=== PATIENT | female | born 1950 | race Caucasian/White ===

== ENCOUNTER 2017-09-22 11:01 | Inpatient (IN) | payer OTHER ==
--- NOTE | 2017-09-22 11:37 | PDOC ---
History of Present Illness - General History Source: Patient Exam Limitations: No Limitations - History of Present Illness Initial Comments: 09/22/17 12:42 The patient is a 67-year-old female, with a past medical history of HTN, who presents to the ED s/p syncopal episode at [facility] an hour prior to arrival. The patient states that she was standing up when she suddenly became nauseous, lightheaded, and heard this rushing noise in her ears. Members of the [facility] saw that the patient was hunched over and sat her down. They tried giving her some water, but she was unable to keep any of it down. As they were trying to stand her up and bring her to the vestibule of the [facility], the patient lost consciousness. The episode lasted for a few seconds. When the patient regained consciousness she knew who she was and where she was, but she was confused as to what happened. She reports having a similar episode back in the Spring that resolved on its own. Friend is at bedside and is translating. She reports that the patient took half the dose of her blood pressure medication this morning because she was not feeling well and assumed her pressure was low (patient's BP machine is not working). The patient denies any fever, chills, vomiting, diarrhea, constipation, or abdominal pain. Denies any chest pain, palpitations, or shortness of breath. Denies any vision changes or numbness/tingling. Allergies: NKA Surgical History: None reported. Social History: None reported. PCP: Dr. Boggs <Freida Bennett - Last Filed: 09/22/17 12:49> <Heather Trinh - Last Filed: 09/22/17 13:08> - General Chief Complaint: Syncope/Near Syncope Stated Complaint: SYNCOPY Time Seen by Provider: 09/22/17 11:05 Past History <Freida Bennett - Last Filed: 09/22/17 12:49> - Suicide/Smoking/Psychosocial Hx Smoking History: Never smoked <Heather Trinh - Last Filed: 09/22/17 13:08> - Past Medical History Allergies/Adverse Reactions: Allergies Allergy/AdvReac Type Severity Reaction Status Date / Time No Known Allergies Allergy Verified 09/22/17 11:09 Home Medications: Ambulatory Orders Captopril 0 mg PO DAILY 09/22/17 Review of Systems - Review of Systems Able to Perform ROS?: Yes Comments:: 09/22/17 12:45 GENERAL/CONSTITUTIONAL: No fever or chills. No weakness. HEAD, EYES, EARS, NOSE AND THROAT: No change in vision. No ear pain or discharge. No sore throat. CARDIOVASCULAR: (+)Lightheadedness. No chest pain or shortness of breath. RESPIRATORY: No cough, wheezing, or hemoptysis. GASTROINTESTINAL: (+)Nausea. No vomiting, diarrhea or constipation. GENITOURINARY: No dysuria, frequency, or change in urination. MUSCULOSKELETAL: No joint or muscle swelling or pain. No neck or back pain. SKIN: No rash NEUROLOGIC: (+)Loss of consciousness. No headache, vertigo, or change in strength/sensation. ENDOCRINE: No increased thirst. No abnormal weight change. HEMATOLOGIC/LYMPHATIC: No anemia, easy bleeding, or history of blood clots. ALLERGIC/IMMUNOLOGIC: No hives or skin allergy. <Freida Bennett - Last Filed: 09/22/17 12:49> *Physical Exam - Vital Signs Last Vital Signs Temp Pulse Resp BP Pulse Ox 97.3 F L 62 18 100/71 97 09/22/17 11:09 09/22/17 11:09 09/22/17 11:09 09/22/17 11:09 09/22/17 11:09 <Freida Bennett - Last Filed: 09/22/17 12:49> - Vital Signs Last Vital Signs Temp Pulse Resp BP Pulse Ox 97.3 F L 62 18 100/71 97 09/22/17 11:09 09/22/17 11:09 09/22/17 11:09 09/22/17 11:09 09/22/17 11:09 <Heather Trinh - Last Filed: 09/22/17 13:08> ED Treatment Course - LABORATORY CBC & Chemistry Diagram: 09/22/17 11:19 09/22/17 11:19 - ADDITIONAL ORDERS Additional order review: Laboratory Results 09/22/17 09/22/17 12:05 11:19 Sodium 140 Potassium 3.2 L Chloride 102 Carbon Dioxide 28 Anion Gap 10 BUN 23 H Creatinine 1.1 H Creat Clearance w eGFR 49.25 Random Glucose 103 Calcium 8.5 Total Bilirubin 0.5 AST 18 ALT 22 Alkaline Phosphatase 64 Creatine Kinase 81 Troponin I < 0.02 Total Protein 6.8 Albumin 3.8 Urine Color Ltyellow Urine Appearance Clear Urine pH 7.0 Ur Specific [place] 1.011 Urine Protein Negative Urine Glucose (UA) Negative Urine Ketones Negative Urine Blood Negative Urine Nitrite Negative Urine Bilirubin Negative Urine Urobilinogen Negative Ur Leukocyte Esterase Negative 09/22/17 11:19 RBC 4.23 MCV 85.8 MCHC 33.7 RDW 13.4 MPV 8.6 Neutrophils % 61.6 Lymphocytes % 23.6 Monocytes % 12.8 H Eosinophils % 1.1 Basophils % 0.9 - RADIOLOGY Radiology Studies Ordered: 09/22/17 12:49 Chest X-Ray was reviewed by Dr. Block and over-read by Radiology. Impression: No acute chest pathology. <Freida Bennett - Last Filed: 09/22/17 12:49> - LABORATORY CBC & Chemistry Diagram: 09/22/17 11:19 09/22/17 11:19 <Heather Trinh - Last Filed: 09/22/17 13:08> Medical Decision Making - Medical Decision Making 09/22/17 12:29 Dr. Boggs was paged and notified via phone service. <Freida Bennett - Last Filed: 09/22/17 12:49> - Medical Decision Making 09/22/17 12:36 New onset afib (one prior episode with it, but she did not seek evaluation at the time). Case d/w Dr. Boggs, patient has CHADS-VASC score of 3, will start on anticoagulation. He recommended a NOAC, as she will be unlikely to adhere to routine bloodwork with coumadin. Will admit to hospitalist. 09/22/17 13:07 Accepted for obs by hospitalist. <Heather Trinh - Last Filed: 09/22/17 13:08> *DC/Admit/Observation/Transfer - Attestations Scribe Attestion: 09/22/17 12:47 Documentation prepared by Freida Bennett, acting as biomedical engineering professor for Heather Trinh MD. <Freida Bennett - Last Filed: 09/22/17 12:49> - Discharge Dispostion Decision to Admit order: Yes <Heather Trinh - Last Filed: 09/22/17 13:08> Diagnosis at time of Disposition: Atrial fibrillation Qualifiers: Atrial fibrillation type: paroxysmal Qualified Code(s): I48.0 - Paroxysmal atrial fibrillation Syncope Qualifiers: Syncope type: unspecified Qualified Code(s): R55 - Syncope and collapse - Discharge Dispostion Condition at time of disposition: Stable - Referrals Referrals: Bryant Boggs MD [Primary Care Provider] -
[2017-09-22 11:42] LABS: BASO % 0.9 % (0-2.0); EOS % 1.1 % (0-4.5); HEMATOCRIT 36.3 % (32.4-45.2); HEMOGLOBIN 12.2 GM/dL (10.7-15.3); LYMPH % 23.6 % (8-40); MCH 28.9 pg (25.7-33.7); MCHC 33.7 g/dl (32.0-36.0); MEAN CELL VOLUME 85.8 fl (80-96); MEAN PLT VOLUME 8.6 fl (7.5-11.1); MONO % 12.8 % (3.8-10.2); NEUT % 61.6 % (42.8-82.8); PLATELET COUNT 201 K/MM3 (134-434); RBC 4.23 M/mm3 (3.60-5.2); RDW 13.4 % (11.6-15.6)
[2017-09-22 12:02] LABS: ALBUMIN 3.8 g/dl (3.4-5.0); ANION GAP 10 (8-16); BILIRUBIN,TOTAL 0.5 mg/dL (0.2-1.0); BLOOD UREA NITROGEN 23 mg/dL (7-18); CALCIUM 8.5 mg/dL (8.5-10.1); CHLORIDE 102 mmol/L (98-107); CO2 28 mmol/L (21-32); CREATININE 1.1 mg/dL (0.55-1.02); GLUCOSE,RANDOM 103 mg/dL (74-106); POTASSIUM 3.2 mmol/L (3.5-5.1); SGOT/AST 18 U/L (15-37); SGPT/ALT 22 U/L (12-78); SODIUM 140 mmol/L (136-145); TOT PROT 6.8 g/dl (6.4-8.2)
[2017-09-22 12:05] LABS: ALK PHOS 64 U/L (45-117)
[2017-09-22 12:15] LABS: URINE APPEARANCE CLEAR; URINE BILIRUBIN NEGATIVE (<2.0 mg/dL); URINE COLOR LTYELLOW; URINE GLUCOSE (UA) NEGATIVE (NEGATIVE); URINE KETONE NEGATIVE (NEGATIVE); URINE LEUK ESTERASE NEGATIVE (NEGATIVE); URINE NITRITE NEGATIVE (NEGATIVE); URINE PROTEIN NEGATIVE (NEGATIVE); URINE UROBILINOGEN NEGATIVE mg/dL (0.2-1.0)
[2017-09-22] MEDS ORDERED: SODIUM CHLORIDE 1,000 ML IV STA (12:28)
[2017-09-22] MEDS ORDERED: POTASSIUM CHLORIDE ORAL LIQUID 20 MEQ/15 ML PO ONE (12:28)
[2017-09-22] MEDS ORDERED: POTASSIUM CHLORIDE ORAL LIQUID 20 MEQ/15 ML ONE (12:31)
--- NOTE | 2017-09-22 13:05 | HP ---
CHIEF COMPLAINT: Lightheaded PCP: Dr. Perez HISTORY OF PRESENT ILLNESS: 67-year-old female with a past medical history of HTN, who presents to the ED s/ p syncopal episode at [facility] an hour prior to arrival. The patient states that she was standing up when she suddenly became nauseous, lightheaded, and heard this rushing noise in her ears. Members of the [facility] saw that the patient was hunched over and sat her down. They tried giving her some water, but she was unable to keep any of it down. As they were trying to stand her up and bring her to the vestibule of the [facility], the patient lost consciousness. The episode lasted for a few seconds. When the patient regained consciousness she knew who she was and where she was, but she was confused as to what happened. She reports having a similar episode back in the Spring that resolved on its own. Friend is at bedside and is translating. She reports that the patient took half the dose of her blood pressure medication this morning because she was not feeling well and assumed her pressure was low (patient's BP machine is not working). Patient denies chest pain, SOB, PORTILLO, orthopnea, lower extremity edema. She denies fever, sweats, chills, nausea, vomiting, diarrhea. She ate a full breakfast before going to [facility], eggs, toast, coffee. She does not recall ever being told she had an irregular heart beat or atrial fibrillation. Patient states she has been on atenolol and captopril. She does not know the dose, does not have meds with her. Pharmacy closed, check on Saturday. ER course was notable for: (1) ECG: afib @ 70bpm (2) BP 100/71 (3) K 3.2 Recent Travel: No PAST MEDICAL HISTORY: Hypertension PAST SURGICAL HISTORY: C section x 2 Social History: Smoking: never Alcohol: no Drugs: no Family History: from [place] Allergies No Known Allergies Allergy (Verified 09/22/17 11:09) HOME MEDICATIONS Home Medications Medication Instructions Recorded Captopril 0 mg PO DAILY 09/22/17 REVIEW OF SYSTEMS CONSTITUTIONAL: Absent: fever, chills, diaphoresis, generalized weakness, malaise, loss of appetite, weight change HEENT: Absent: rhinorrhea, nasal congestion, throat pain, throat swelling, difficulty swallowing, mouth swelling, ear pain, eye pain, visual changes CARDIOVASCULAR: +nausea, lightheadedness, "rushing sound" in ears, syncope Absent: chest pain, syncope, palpitations, irregular heart rate, lightheadedness , peripheral edema RESPIRATORY: Absent: cough, shortness of breath, dyspnea with exertion, orthopnea, wheezing, stridor, hemoptysis GASTROINTESTINAL: Absent: abdominal pain, abdominal distension, nausea, vomiting, diarrhea, constipation, melena, hematochezia GENITOURINARY: Absent: dysuria, frequency, urgency, hesitancy, hematuria, flank pain, genital pain MUSCULOSKELETAL: Absent: myalgia, arthralgia, joint swelling, back pain, neck pain SKIN: Absent: rash, itching, pallor HEMATOLOGIC/IMMUNOLOGIC: Absent: easy bleeding, easy bruising, lymphadenopathy, frequent infections ENDOCRINE: Absent: unexplained weight gain, unexplained weight loss, heat intolerance, cold intolerance NEUROLOGIC: Absent: headache, focal weakness or paresthesias, dizziness, unsteady gait, seizure, mental status changes, bladder or bowel incontinence PSYCHIATRIC: Absent: anxiety, depression, suicidal or homicidal ideation, hallucinations. PHYSICAL EXAMINATION Vital Signs - 24 hr 09/22/17 11:09 Temperature 97.3 F L Pulse Rate 62 Respiratory 18 Rate Blood Pressure 100/71 O2 Sat by Pulse 97 Oximetry (%) GENERAL: Awake, alert, and fully oriented, in no acute distress. HEAD: Normal with no signs of trauma. EYES: Pupils equal, round and reactive to light, extraocular movements intact, sclera anicteric, conjunctiva clear. No lid lag. EARS, NOSE, THROAT: Ears normal, nares patent, oropharynx clear without exudates. Moist mucous membranes. NECK: Normal range of motion, supple without lymphadenopathy, JVD, or masses. LUNGS: Breath sounds equal, clear to auscultation bilaterally. No wheezes, and no crackles. No accessory muscle use. HEART: Regular rate and rhythm, normal S1 and S2 without murmur, rub or gallop. ABDOMEN: Soft, nontender, not distended, normoactive bowel sounds, no guarding, no rebound, no masses. No hepatomegaly or splenomegaly. MUSCULOSKELETAL: Normal range of motion at all joints. No bony deformities or tenderness. No CVA tenderness. UPPER EXTREMITIES: 2+ pulses, warm, well-perfused. No cyanosis. No clubbing. No peripheral edema. LOWER EXTREMITIES: 2+ pulses, warm, well-perfused. No calf tenderness. No peripheral edema. NEUROLOGICAL: Cranial nerves II-XII intact. Normal speech. Laboratory Results - last 24 hr 09/22/17 09/22/17 09/22/17 11:19 11:19 12:05 WBC 6.0 RBC 4.23 Hgb 12.2 Hct 36.3 MCV 85.8 MCH 28.9 MCHC 33.7 RDW 13.4 Plt Count 201 MPV 8.6 Absolute Neuts (auto) 3.7 Neutrophils % 61.6 Lymphocytes % 23.6 Monocytes % 12.8 H Eosinophils % 1.1 Basophils % 0.9 Nucleated RBC % 0 Sodium 140 Potassium 3.2 L Chloride 102 Carbon Dioxide 28 Anion Gap 10 BUN 23 H Creatinine 1.1 H Creat Clearance w eGFR 49.25 Random Glucose 103 Calcium 8.5 Total Bilirubin 0.5 AST 18 ALT 22 Alkaline Phosphatase 64 Creatine Kinase 81 Troponin I < 0.02 Total Protein 6.8 Albumin 3.8 Urine Color Ltyellow Urine Appearance Clear Urine pH 7.0 Ur Specific [place] 1.011 Urine Protein Negative Urine Glucose (UA) Negative Urine Ketones Negative Urine Blood Negative Urine Nitrite Negative Urine Bilirubin Negative Urine Urobilinogen Negative Ur Leukocyte Esterase Negative ASSESSMENT/PLAN: 67 year-old woman with a PMH significant for HTN, placed on observation after a syncopal episode. Found to be in afib. Syncope Atrial fibrillation, newly diagnosed --prodrome suggestive of vasovagal episode; got 1L fluids in ED; get orthostatics --afib on ECG @ 70 bpm, newly diagnosed; prolonged QTc --home medications unclear, may be on ACEI and BB, doesn't always take meds or self-adjusts --troponin neg x 1, two pending --CXR: unremarkable --echo pending --telemetry monitoring --US carotids pending --NPO after midnight in event of stress tomorrow --per PCP Dr. Boggs patient is poor with medical followup and coumadin would not be a good option; start Eliqus 5mg BID --start metoprolol 12.5mg BID Hypertension --normotensive --hold lisinopril for now Hypokalemia --repleted FEN Fluids: NS @ 50mL/hr Electrolytes: replete as indicated Nutrition: low sodium DVT prophylaxis: on Eliquis Dispo: continues to require observation. Full code. Visit type - Emergency Visit Emergency Visit: Yes ED Registration Date: 09/22/17 Care time: The patient presented to the Emergency Department on the above date and was hospitalized for further evaluation of their emergent condition. - New Patient This patient is new to me today: Yes Date on this admission: 09/22/17 - Critical Care Critical Care patient: No Hospitalist Screening - Colonoscopy Questionnaire Colonoscopy Questionnaire: Colonoscopy Questionnaire - Patient: 50 - 75 years old and never had a screening colonoscopy: Unknown History of colon or rectal polyps, or CA: Unknown History of IBD, Crohn's disease or UC: Unknown History of abdominal radiation therapy as a child: Unknown - Relative: 1 with colon or rectal CA, or polyps at age 60 or younger: Unknown Colon or rectal CA diagnosed at age 45 or younger: Unknown Multiple relatives with colon or rectal CA: Unknown - Outcome: Screening Result: Negative Screen
[2017-09-22] MEDS ORDERED: APIXABAN 5 MG TABLET PO SCH (13:15)
--- NOTE | 2017-09-22 14:14 | CON.CARD ---
Consult Consult Specialty:: Cardiology - History of Present Illness History of Present Illness: The patient is a 67-year-old female, with a past medical history of HTN, who presents to the ED s/p syncopal episode at [facility] an hour prior to arrival. The patient states that she was standing up when she suddenly became nauseous, lightheaded, and heard this rushing noise in her ears. Members of the [facility] saw that the patient was hunched over and sat her down. They tried giving her some water, but she was unable to keep any of it down. As they were trying to stand her up and bring her to the vestibule of the [facility], the patient lost consciousness. The episode lasted for a few seconds. When the patient regained consciousness she knew who she was and where she was, but she was confused as to what happened. She reports having a similar episode back in the Spring that resolved on its own. Friend is at bedside and is translating. She reports that the patient took half the dose of her blood pressure medication this morning because she was not feeling well and assumed her pressure was low (patient's BP machine is not working). The patient denies any fever, chills, vomiting, diarrhea, constipation, or abdominal pain. Denies any chest pain, palpitations, or shortness of breath. Denies any vision changes or numbness/tingling. - Smoking History Smoking history: Never smoked Home Medications - Allergies Allergies/Adverse Reactions: Allergies Allergy/AdvReac Type Severity Reaction Status Date / Time No Known Allergies Allergy Verified 09/22/17 11:09 - Home Medications Home Medications: Ambulatory Orders Captopril 0 mg PO DAILY 09/22/17 Review of Systems - Review of Systems Constitutional: reports: No Symptoms Eyes: reports: No Symptoms HENT: reports: No Symptoms Neck: reports: No Symptoms Cardiovascular: reports: No Symptoms Gastrointestinal: reports: No Symptoms Genitourinary: reports: No Symptoms Breasts: reports: No Symptoms Reported Musculoskeletal: reports: No Symptoms Integumentary: reports: No Symptoms Neurological: reports: Syncope Endocrine: reports: No Symptoms Hematology/Lymphatic: reports: No Symptoms Psychiatric: reports: No Symptoms Vital Signs: Vital Signs Temperature 97.3 F L 09/22/17 11:09 Pulse Rate 62 09/22/17 11:09 Respiratory Rate 18 09/22/17 11:09 Blood Pressure 100/71 09/22/17 11:09 O2 Sat by Pulse Oximetry (%) 97 09/22/17 11:09 Constitutional: Yes: Well Nourished, No Distress, Calm Eyes: Yes: WNL, Conjunctiva Clear, EOM Intact HENT: Yes: WNL, Atraumatic, Normocephalic Neck: Yes: WNL, Supple, Trachea Midline Respiratory: Yes: WNL, Regular, CTA Bilaterally Gastrointestinal: Yes: WNL, Normal Bowel Sounds Renal/: Yes: WNL Cardiovascular: Yes: Pulse Irregular Heart Sounds: Yes: S1, S2 Musculoskeletal: Yes: WNL Extremities: Yes: WNL Integumentary: Yes: WNL Neurological: Yes: WNL, Alert, Oriented ...Motor Strength: WNL Psychiatric: Yes: WNL, Alert, Oriented - Other Data Labs, Other Data: CBC, BMP 09/22/17 11:19 09/22/17 11:19 Troponin, BNP 09/22/17 11:19 Troponin I < 0.02 Troponin, BNP 09/22/17 11:19 Troponin I < 0.02 Imaging - Results Chest X-ray: Image Reviewed (no i/e) EKG: Image Reviewed (af rep abn) Problem List - Problems (1) Atrial fibrillation Code(s): I48.91 - UNSPECIFIED ATRIAL FIBRILLATION Qualifiers: Atrial fibrillation type: paroxysmal Qualified Code(s): I48.0 - Paroxysmal atrial fibrillation (2) Syncope Code(s): R55 - SYNCOPE AND COLLAPSE Qualifiers: Syncope type: unspecified Qualified Code(s): R55 - Syncope and collapse Assessment/Plan syncope htn af neg c. duplex plan telemetry echo ac cont rate control with metoprollol
--- NOTE | 2017-09-22 14:16 | EKG ---
Test Reason : Blood Pressure : / mmHG Vent. Rate : 070 BPM Atrial Rate : 300 BPM P-R Int : 000 ms QRS Dur : 090 ms QT Int : 450 ms P-R-T Axes : 000 -01 -35 degrees QTc Int : 486 ms ATRIAL FIBRILLATION NONSPECIFIC ST AND T WAVE ABNORMALITY PROLONGED QT ABNORMAL ECG NO PREVIOUS ECGS AVAILABLE Confirmed by DANNA TRAYLOR MD ([id number]) on 09/22/2017 2:16:21 PM Referred By: Confirmed By:DANNA TRAYLOR MD
[2017-09-22] MEDS: APIXABAN 5 MG TABLET PO SCH (18:48)
[2017-09-22] MEDS ORDERED: SODIUM CHLORIDE 1,000 ML IV SCH (19:00)
[2017-09-22] MEDS ORDERED: POTASSIUM CHLORIDE TABS 20 MEQ TABLET.ER (FP) PO ONE (20:00)
[2017-09-22] MEDS ORDERED: POTASSIUM CHLORIDE TABS 10 MEQ TABLET.ER (FP) ONE (23:19)
[2017-09-23 07:54] LABS: ANION GAP 7 (8-16); BLOOD UREA NITROGEN 16 mg/dL (7-18); CALCIUM 8.4 mg/dL (8.5-10.1); CHLORIDE 106 mmol/L (98-107); CO2 26 mmol/L (21-32); CREATININE 0.8 mg/dL (0.55-1.02); GLUCOSE,RANDOM 92 mg/dL (74-106); MAGNESIUM 1.7 mg/dL (1.8-2.4); POTASSIUM 4.6 mmol/L (3.5-5.1); SODIUM 139 mmol/L (136-145)
[2017-09-23] MEDS ORDERED: LISINOPRIL 10 MG TABLET (FP) PO SCH (10:00)
[2017-09-23] MEDS ORDERED: CAPTOPRIL 25 MG PO SCH (10:00)
[2017-09-23] MEDS: METOPROLOL TARTRATE 25 MG TABLET (FP) PO SCH (10:55)
[2017-09-23] MEDS: MAGNESIUM 1GM/D5W 100ML - 100 ML IVPB IVPB SCH ×2 (10:55→13:08)
[2017-09-23] MEDS: APIXABAN 5 MG TABLET PO SCH ×2 (10:55→23:00)
--- NOTE | 2017-09-23 12:30 | PN ---
Progress Note, Physician History of Present Illness: The patient is a 67-year-old female, with a past medical history of HTN, who presents to the ED s/p syncopal episode at [facility] an hour prior to arrival. The patient states that she was standing up when she suddenly became nauseous, lightheaded, and heard this rushing noise in her ears. Members of the [facility] saw that the patient was hunched over and sat her down. They tried giving her some water, but she was unable to keep any of it down. As they were trying to stand her up and bring her to the vestibule of the [facility], the patient lost consciousness. The episode lasted for a few seconds. When the patient regained consciousness she knew who she was and where she was, but she was confused as to what happened. She reports having a similar episode back in the Spring that resolved on its own. Friend is at bedside and is translating. She reports that the patient took half the dose of her blood pressure medication this morning because she was not feeling well and assumed her pressure was low (patient's BP machine is not working). The patient denies any fever, chills, vomiting, diarrhea, constipation, or abdominal pain. Denies any chest pain, palpitations, or shortness of breath. Denies any vision changes or numbness/tingling. - Current Medication List Current Medications: Active Medications Apixaban (Eliquis -) 5 mg PO BID [facility] Last Admin: 09/23/17 10:55 Dose: 5 mg Sodium Chloride (Normal Saline -) 1,000 mls @ 50 mls/hr IV ASDIR [facility] Stop: 09/23/17 18:50 Last Admin: 09/22/17 23:36 Dose: 50 mls/hr Metoprolol Tartrate (Lopressor -) 12.5 mg PO DAILY [facility] Last Admin: 09/23/17 10:55 Dose: 12.5 mg - Objective Vital Signs: Vital Signs Temperature 97.9 F 09/23/17 07:23 Pulse Rate 72 09/23/17 07:23 Respiratory Rate 18 09/23/17 01:09 Blood Pressure 107/56 09/23/17 07:23 O2 Sat by Pulse Oximetry (%) 97 09/23/17 07:23 Eyes: Yes: WNL, Conjunctiva Clear, EOM Intact HENT: Yes: WNL, Atraumatic, Normocephalic Neck: Yes: WNL, Supple, Trachea Midline Cardiovascular: Yes: Pulse Irregular, S1, S2 Respiratory: Yes: WNL, Regular, CTA Bilaterally Gastrointestinal: Yes: WNL, Normal Bowel Sounds Genitourinary: Yes: WNL Musculoskeletal: Yes: WNL Extremities: Yes: WNL Edema: No Integumentary: Yes: WNL Neurological: Yes: WNL, Alert, Oriented ...Motor Strength: WNL Psychiatric: Yes: WNL Labs: CBC, BMP 09/22/17 11:19 09/23/17 06:00 Problem List - Problems (1) Atrial fibrillation Code(s): I48.91 - UNSPECIFIED ATRIAL FIBRILLATION Qualifiers: Atrial fibrillation type: paroxysmal Qualified Code(s): I48.0 - Paroxysmal atrial fibrillation (2) Syncope Code(s): R55 - SYNCOPE AND COLLAPSE Qualifiers: Syncope type: unspecified Qualified Code(s): R55 - Syncope and collapse Assessment/Plan syncope htn af neg c. duplex plan telemetry echo ac cont rate control with metoprolol MIBI st when stable
[2017-09-23] MEDS ORDERED: MAGNESIUM 1GM/D5W - 1 GM/100 ML IVPB IVPB ONE (12:58)
--- NOTE | 2017-09-23 17:19 | ECHO ---
Name: LISSETTE CHRISTIE Exam:Adult Echocardiogram Study Date: 09/23/2017 03:22 PM Age: 67 yrs Reason For Study: NEW ONSET OF ATRIAL FIBRILLATION Height: 66 in Weight: 170 lb BSA: 1.9 m2 MMode/2D Measurements & Calculations IVSd: 0.82 cm Ao root diam: 3.1 cm LVIDd: 4.2 cm LA dimension: 4.1 cm LVIDs: 2.7 cm LVPWd: 0.91 cm EDV(Teich): 77.9 ml TAPSE: 2.4 cm ESV(Teich): 27.1 ml Doppler Measurements & Calculations MV E max alexandr: 109.6 cm/sec Ao V2 max: 175.9 cm/sec MV A max alexandr: 37.0 cm/sec Ao max P.4 mmHg MV E/A: 3.0 Ao V2 mean: 121.9 cm/sec MV dec time: 0.20 sec Ao mean P.5 mmHg Ao V2 VTI: 40.3 cm AI P1/2t: 535.5 msec AI max alexandr: 440.6 cm/sec LV V1 max P.6 mmHg AI max P.7 mmHg LV V1 mean P.7 mmHg LV V1 max: 95.3 cm/sec AI dec slope: 241.0 cm/sec2 LV V1 mean: 60.1 cm/sec LV V1 VTI: 18.8 cm MR max alexandr: 399.9 cm/sec TR max alexandr: 194.3 cm/sec MR max P.4 mmHg TR max P.1 mmHg Med Peak E' Alexandr: 19.0 cm/sec Med E/e': 5.8 Lat Peak E' Alexandr: 11.2 cm/sec Lat E/e': 9.8 Left Ventricle The left ventricle is normal in size. Left ventricular systolic function is normal. Ejection Fraction = 60- 65%. No regional wall motion abnormalities noted. Right Ventricle The right ventricle is normal size. The right ventricular systolic function is normal. Atria The left atrial size is normal. Right atrial size is normal. Mitral Valve The mitral valve is normal in structure and function. There is moderate mitral regurgitation. Tricuspid Valve The tricuspid valve is normal in structure and function. There is mild tricuspid regurgitation. Pulmo nary artery systolic pressure is at least 23 mmHg assuming RA pressure of 8 mmHg. Aortic Valve The aortic valve is normal in structure and function. Moderate aortic regurgitation. Pulmonic Valve The pulmonic valve is not well visualized. Great Vessels The aortic root is normal size. Pericardium/Pleura There is no pericardial effusion. Interpretation Summary The left ventricle is normal in size. Left ventricular systolic function is normal. No regional wall motion abnormalities noted. Ejection Fraction = 60-65%. The right ventricular systolic function is normal. The left atrial size is normal. Right atrial size is normal. There is moderate mitral regurgitation. There is mild tricuspid regurgitation. Pulmonary artery systolic pressure is at least 23 mmHg assuming RA pressure of 8 mmHg Moderate aortic regurgitation. There is no pericardial effusion. Previous study is not available for comparison Stu Tellez MD 09/23/2017 05:18 PM
[2017-09-24 02:14] VITALS: BMI 28.1
[2017-09-24] MEDS: APIXABAN 5 MG TABLET PO SCH ×2 (10:10→21:40)
[2017-09-24] MEDS: METOPROLOL TARTRATE 25 MG TABLET (FP) PO SCH (10:10)
--- NOTE | 2017-09-24 10:20 | PN ---
Progress Note, Physician Chief Complaint: Pt A&Ox3; ambulatory; anxious; no chest pain or palpitations; not dyspneic. 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 She is unaware she has a heart arrhythmiia (AF), nor that osmar is on an anticoagulant now. History of Present Illness: The patient is a 67-year-old female, with a past medical history of HTN, who presents to the ED s/p syncopal episode at [facility] an hour prior to arrival. The patient states that she was standing up when she suddenly became nauseous, lightheaded, and heard this rushing noise in her ears. Members of the [facility] saw that the patient was hunched over and sat her down. They tried giving her some water, but she was unable to keep any of it down. As they were trying to stand her up and bring her to the vestibule of the [facility], the patient lost consciousness. The episode lasted for a few seconds. When the patient regained consciousness she knew who she was and where she was, but she was confused as to what happened. She reports having a similar episode back in the Spring that resolved on its own. Friend is at bedside and is translating. She reports that the patient took half the dose of her blood pressure medication this morning because she was not feeling well and assumed her pressure was low (patient's BP machine is not working). The patient denies any fever, chills, vomiting, diarrhea, constipation, or abdominal pain. Denies any chest pain, palpitations, or shortness of breath. Denies any vision changes or numbness/tingling. Allergies: NKA Surgical History: None reported. Social History: None reported. PCP: Dr. Boggs - Current Medication List Current Medications: Active Medications Apixaban (Eliquis -) 5 mg PO BID [facility] Last Admin: 09/24/17 10:10 Dose: 5 mg Metoprolol Tartrate (Lopressor -) 12.5 mg PO DAILY [facility] Last Admin: 09/24/17 10:10 Dose: 12.5 mg - Objective Vital Signs: Vital Signs Temperature 97.6 F 09/24/17 05:43 Pulse Rate 73 09/24/17 05:43 Respiratory Rate 18 09/24/17 05:43 Blood Pressure 122/73 09/24/17 05:43 O2 Sat by Pulse Oximetry (%) 98 08/07/18 01:30 Constitutional: Yes: Anxious Eyes: Yes: WNL HENT: Yes: WNL Neck: Yes: WNL Cardiovascular: Yes: Pulse Irregular, S1 (varies in intensity) Respiratory: Yes: Regular Gastrointestinal: Yes: Soft ...Rectal Exam: Yes: Deferred Genitourinary: Yes: Anuria Breast(s): Yes: WNL Musculoskeletal: Yes: WNL Extremities: Yes: WNL Edema: No Peripheral Pulses WNL: Yes Integumentary: Yes: WNL Neurological: Yes: WNL Psychiatric: Yes: WNL Labs: CBC, BMP 09/22/17 11:19 09/23/17 06:00 Abnormal Lab Results 09/24/17 09/24/17 09/24/17 10:50 10:50 12:00 Monocytes % 12.9 H PT with INR 17.70 H INR 1.57 H PTT (Actin FS) Anion Gap 6 L Triglycerides 173 H 09/24/17 12:00 Monocytes % PT with INR INR PTT (Actin FS) 44.4 H Anion Gap Triglycerides Problem List - Problems (1) Atrial fibrillation Assessment/Plan: Change metoprolol tartrate to 25 mg succinate daily for better 24 hour coverage (if tarrate is used, start bid). Hold metoprolol until after stress MIBI in am. On NOAC for anticoagulation. F/u TSH, electrolytes. Code(s): I48.91 - UNSPECIFIED ATRIAL FIBRILLATION Qualifiers: Atrial fibrillation type: paroxysmal Qualified Code(s): I48.0 - Paroxysmal atrial fibrillation (2) Syncope Assessment/Plan: Carotid artery doppler: normal. Telemetry and EKG: AF. ECHO: normal LVEF; mild LAE; moderate MR and AR; mild TR. For stress MIBI in am. Code(s): R55 - SYNCOPE AND COLLAPSE Qualifiers: Syncope type: unspecified Qualified Code(s): R55 - Syncope and collapse (3) Hypomagnesemia Assessment/Plan: level 1.7 on 09/23/17; check today's level (keep 2-2.4). Code(s): E83.42 - HYPOMAGNESEMIA
[2017-09-24] MEDS ORDERED: MAGNESIUM SULF 50% (8.12 MEQ/2 ML-1 GM VIAL) IVPB ONE (10:32)
[2017-09-24 11:06] LABS: BASO % 1.4 % (0-2.0); EOS % 1.3 % (0-4.5); HEMATOCRIT 32.5 % (32.4-45.2); HEMOGLOBIN 11.2 GM/dL (10.7-15.3); LYMPH % 25.7 % (8-40); MCH 29.4 pg (25.7-33.7); MCHC 34.3 g/dl (32.0-36.0); MEAN CELL VOLUME 85.6 fl (80-96); MEAN PLT VOLUME 8.6 fl (7.5-11.1); MONO % 12.9 % (3.8-10.2); NEUT % 58.7 % (42.8-82.8); PLATELET COUNT 207 K/MM3 (134-434); RDW 13.4 % (11.6-15.6); WHITE BLOOD COUNT 4.7 K/mm3 (4.0-10.0)
--- NOTE | 2017-09-24 11:09 | PN ---
Physical Exam: SUBJECTIVE: Patient seen and examined. Still in ED. Echo done. OBJECTIVE: Vital Signs Period Temp Pulse Resp BP Sys/Kaur Pulse Ox Last 24 Hr 97.5 F-98.0 F 73-90 16-20 112-143/57-79 94-98 GENERAL: Awake, alert, and fully oriented, in no acute distress. LUNGS: Breath sounds equal, clear to auscultation bilaterally. No wheezes, and no crackles. No accessory muscle use. HEART: Regular rate and rhythm, normal S1 and S2 ABDOMEN: Soft, nontender, not distended MUSCULOSKELETAL: Normal range of motion at all joints. No bony deformities or tenderness. No CVA tenderness. UPPER EXTREMITIES: 2+ pulses, warm, well-perfused. No cyanosis. No clubbing. No peripheral edema. LOWER EXTREMITIES: 2+ pulses, warm, well-perfused. No calf tenderness. No peripheral edema. No calf tenderness. NEUROLOGICAL: Cranial nerves II-XII intact. Normal speech. Laboratory Results - last 24 hr 09/23/17 14:05 Creatine Kinase 108 Troponin I < 0.02 Active Medications Generic Name Dose Route Start Trade Name Freq PRN Reason Stop Apixaban 5 mg 09/22/17 18:15 Eliquis - PO BID [facility] Metoprolol Succinate 25 mg 09/25/17 14:00 Toprol Xl - PO DAILY [facility] ASSESSMENT/PLAN 67 year-old woman with a PMH significant for HTN, placed on observation after a syncopal episode. Found to be in afib. Syncope Atrial fibrillation, newly diagnosed --prodrome suggestive of vasovagal episode; got 1L fluids in ED; get orthostatics --troponin neg x 3 --CXR: unremarkable --09/23 Echo: LV normal EF 60-65%; RV normal; moderate MR; mild TR; moderate AI --09/22 US carotids: normal study --per PCP Dr. Boggs patient is poor with medical followup and coumadin would not be a good option for a/c; start Eliqus 5mg BID --metoprolol 12.5mg BID Hypertension --normotensive --hold lisinopril for now Hypokalemia --repleted FEN Fluids: PO intake adequate Electrolytes: replete as indicated Nutrition: low sodium DVT prophylaxis: on Eliquis Dispo: continues to require observation. Full code. Visit type - Emergency Visit Emergency Visit: Yes ED Registration Date: 09/22/17 Care time: The patient presented to the Emergency Department on the above date and was hospitalized for further evaluation of their emergent condition. - New Patient This patient is new to me today: No - Critical Care Critical Care patient: No
[2017-09-24 11:38] LABS: CHLORIDE 104 mmol/L (98-107); POTASSIUM 4.1 mmol/L (3.5-5.1); SODIUM 139 mmol/L (136-145)
[2017-09-24 11:52] LABS: ANION GAP 6 (8-16); BLOOD UREA NITROGEN 9 mg/dL (7-18); CHOLESTEROL 148 mg/dL (50-200); CO2 29 mmol/L (21-32); CREATININE 0.8 mg/dL (0.55-1.02); GLUCOSE,RANDOM 95 mg/dL (74-106); HDL CHOLESTEROL 43 mg/dL (40-60); MAGNESIUM 1.8 mg/dL (1.8-2.4); TRIGLYCERIDES 173 mg/dL (35-160)
[2017-09-24] MEDS ORDERED: MAGNESIUM OXIDE 400 MG TABLET (FP) PO ONE (12:21)
[2017-09-24 12:36] LABS: INR 1.57 (0.83-1.09); PROTHROMBIN TIME (PATIENT) 17.7 SEC (9.7-13.0)
--- NOTE | 2017-09-24 17:02 | PN ---
Physical Exam: SUBJECTIVE: Patient seen and examined. Feeling well. No chest pain, palpitations. No episodes of lightheadedness. OBJECTIVE: Vital Signs Period Temp Pulse Resp BP Sys/Kaur Pulse Ox Last 24 Hr 97.5 F-99.2 F 70-90 16-20 114-143/70-82 94-98 GENERAL: Awake, alert, and fully oriented, in no acute distress. LUNGS: Breath sounds equal, clear to auscultation bilaterally. No wheezes, and no crackles. No accessory muscle use. HEART: Regular rate and rhythm, normal S1 and S2 ABDOMEN: Soft, nontender, not distended MUSCULOSKELETAL: Normal range of motion at all joints. No bony deformities or tenderness. No CVA tenderness. UPPER EXTREMITIES: 2+ pulses, warm, well-perfused. No cyanosis. No clubbing. No peripheral edema. LOWER EXTREMITIES: 2+ pulses, warm, well-perfused. No calf tenderness. No peripheral edema. No calf tenderness. NEUROLOGICAL: Cranial nerves II-XII intact. Normal speech. Laboratory Results - last 24 hr 09/24/17 09/24/17 09/24/17 10:50 10:50 12:00 WBC 4.7 RBC 3.80 Hgb 11.2 Hct 32.5 MCV 85.6 MCH 29.4 MCHC 34.3 RDW 13.4 Plt Count 207 MPV 8.6 Absolute Neuts (auto) 2.7 Neutrophils % 58.7 Lymphocytes % 25.7 Monocytes % 12.9 H Eosinophils % 1.3 Basophils % 1.4 Nucleated RBC % 0 PT with INR 17.70 H INR 1.57 H PTT (Actin FS) Sodium 139 Potassium 4.1 Chloride 104 Carbon Dioxide 29 Anion Gap 6 L BUN 9 Creatinine 0.8 Creat Clearance w eGFR > 60 Random Glucose 95 Calcium 9.0 Magnesium 1.8 Triglycerides 173 H Cholesterol 148 Total LDL Cholesterol 85 HDL Cholesterol 43 TSH 1.54 09/24/17 12:00 WBC RBC Hgb Hct MCV MCH MCHC RDW Plt Count MPV Absolute Neuts (auto) Neutrophils % Lymphocytes % Monocytes % Eosinophils % Basophils % Nucleated RBC % PT with INR INR PTT (Actin FS) 44.4 H Sodium Potassium Chloride Carbon Dioxide Anion Gap BUN Creatinine Creat Clearance w eGFR Random Glucose Calcium Magnesium Triglycerides Cholesterol Total LDL Cholesterol HDL Cholesterol TSH Active Medications Generic Name Dose Route Start Last Admin Trade Name Freq PRN Reason Stop Dose Admin Apixaban 5 mg 09/22/17 18:15 09/24/17 10:10 Eliquis - PO 5 mg BID [facility] Administration Metoprolol Succinate 25 mg 09/25/17 14:00 Toprol Xl - PO DAILY [facility] ASSESSMENT/PLAN: 67 year-old woman with a PMH significant for HTN, placed on observation after a syncopal episode. Found to be in afib. Syncope Atrial fibrillation, newly diagnosed, episodes of RVR --HR to 140s on telemetry --troponin neg x 3 --CXR: unremarkable --09/23 Echo: LV normal EF 60-65%; RV normal; moderate MR; mild TR; moderate AI --09/22 US carotids: normal study --continue Eliqus 5mg BID --hold metoprolol for stress tomorrow --cardiology following Hypertension --normotensive --restart ACEI - lisinopril 10mg Hypokalemia --repleted FEN Fluids: PO intake adequate Electrolytes: replete as indicated Nutrition: low sodium DVT prophylaxis: on Eliquis Dispo: continues to require observation. Full code. Visit type - Emergency Visit Emergency Visit: Yes ED Registration Date: 09/22/17 Care time: The patient presented to the Emergency Department on the above date and was hospitalized for further evaluation of their emergent condition. - New Patient This patient is new to me today: No - Critical Care Critical Care patient: No
[2017-09-24] MEDS: LISINOPRIL 10 MG TABLET (FP) PO SCH (17:48)
[2017-09-25] MEDS ORDERED: MAGNESIUM OXIDE 400 MG TABLET (FP) PO ONE (07:41)
[2017-09-25] MEDS: LISINOPRIL 10 MG TABLET (FP) PO SCH ×2 (09:30→13:05)
[2017-09-25] MEDS: APIXABAN 5 MG TABLET PO SCH (09:30)
--- NOTE | 2017-09-25 13:20 | PN ---
Progress Note, Physician History of Present Illness: The patient is a 67-year-old female, with a past medical history of HTN, who presents to the ED s/p syncopal episode at [facility] an hour prior to arrival. The patient states that she was standing up when she suddenly became nauseous, lightheaded, and heard this rushing noise in her ears. Members of the [facility] saw that the patient was hunched over and sat her down. They tried giving her some water, but she was unable to keep any of it down. As they were trying to stand her up and bring her to the vestibule of the [facility], the patient lost consciousness. The episode lasted for a few seconds. When the patient regained consciousness she knew who she was and where she was, but she was confused as to what happened. She reports having a similar episode back in the Spring that resolved on its own. Friend is at bedside and is translating. She reports that the patient took half the dose of her blood pressure medication this morning because she was not feeling well and assumed her pressure was low (patient's BP machine is not working). The patient denies any fever, chills, vomiting, diarrhea, constipation, or abdominal pain. Denies any chest pain, palpitations, or shortness of breath. Denies any vision changes or numbness/tingling. - Current Medication List Current Medications: Active Medications Lisinopril (Prinivil) 10 mg PO DAILY [facility] Last Admin: 09/25/17 13:05 Dose: 10 mg Metoprolol Succinate (Toprol Xl -) 25 mg PO DAILY [facility] Last Admin: 09/25/17 13:05 Dose: 25 mg - Objective Vital Signs: Vital Signs Temperature 97.9 F 09/25/17 09:00 Pulse Rate 61 09/25/17 09:00 Respiratory Rate 20 09/25/17 09:00 Blood Pressure 130/77 09/25/17 09:00 O2 Sat by Pulse Oximetry (%) 98 09/25/17 09:00 Eyes: Yes: WNL, Conjunctiva Clear, EOM Intact HENT: Yes: WNL, Atraumatic, Normocephalic Neck: Yes: WNL, Supple, Trachea Midline Cardiovascular: Yes: WNL, Regular Rate and Rhythm Respiratory: Yes: WNL, Regular, CTA Bilaterally Gastrointestinal: Yes: WNL, Normal Bowel Sounds Genitourinary: Yes: WNL Musculoskeletal: Yes: WNL Extremities: Yes: WNL Edema: No Integumentary: Yes: WNL Neurological: Yes: WNL, Alert, Oriented ...Motor Strength: WNL Psychiatric: Yes: WNL Labs: CBC, BMP 09/24/17 10:50 09/24/17 10:50 INR, PTT INR 1.57 (0.83-1.09) H 09/24/17 12:00 Problem List - Problems (1) Atrial fibrillation Code(s): I48.91 - UNSPECIFIED ATRIAL FIBRILLATION Qualifiers: Atrial fibrillation type: paroxysmal Qualified Code(s): I48.0 - Paroxysmal atrial fibrillation (2) Syncope Code(s): R55 - SYNCOPE AND COLLAPSE Qualifiers: Syncope type: unspecified Qualified Code(s): R55 - Syncope and collapse Assessment/Plan - Problems (1) Atrial fibrillation Assessment/Plan: Change metoprolol tartrate to 25 mg succinate daily for better 24 hour coverage (if tarrate is used, start bid). Hold metoprolol until after stress MIBI in am. off NOAC for c. cath -will start Lovenox F/u TSH, electrolytes. Code(s): I48.91 - UNSPECIFIED ATRIAL FIBRILLATION Qualifiers: Atrial fibrillation type: paroxysmal Qualified Code(s): I48.0 - Paroxysmal atrial fibrillation (2) Syncope Assessment/Plan: Carotid artery doppler: normal. Telemetry and EKG: AF. ECHO: normal LVEF; mild LAE; moderate MR and AR; mild TR. stress MIBI exercise induced ekg changes, TIB 1.2 no perfussion defects d/w patient and her nice who is a nurse at [facility] rx options including c. cath. Patient will go for c cath either to [facility] or [facility] Code(s): R55 - SYNCOPE AND COLLAPSE Qualifiers: Syncope type: unspecified Qualified Code(s): R55 - Syncope and collapse (3) Hypomagnesemia Assessment/Plan: level 1.7 on 09/23/17; check today's level (keep 2-2.4). Code(s): E83.42 - HYPOMAGNESEMIA
[2017-09-25] MEDS: ENOXAPARIN NA (PORCINE) 80 MG/0.8 ML DISP.SYRIN SQ SCH ×4 (13:35→21:22)
[2017-09-25] MEDS ORDERED: metoPROLOL SUCCINATE 25 MG TAB.SR.24H (FP) PO SCH (14:00)
--- NOTE | 2017-09-25 14:19 | DS ---
Physical Exam: SUBJECTIVE: Patient seen and examined OBJECTIVE: Vital Signs Period Temp Pulse Resp BP Sys/Kaur Pulse Ox Last 24 Hr 97.2 F-99.2 F 61-85 17-20 118-137/70-89 95-98 PHYSICAL EXAM GENERAL: Awake, alert, and fully oriented, in no acute distress. LUNGS: Breath sounds equal, clear to auscultation bilaterally. No wheezes, and no crackles. No accessory muscle use. HEART: Irregular, S1 and S2 ABDOMEN: Soft, nontender, not distended MUSCULOSKELETAL: Normal range of motion at all joints. No bony deformities or tenderness. No CVA tenderness. UPPER EXTREMITIES: 2+ pulses, warm, well-perfused. No cyanosis. No clubbing. No peripheral edema. LOWER EXTREMITIES: 2+ pulses, warm, well-perfused. No calf tenderness. No peripheral edema. No calf tenderness. NEUROLOGICAL: Cranial nerves II-XII intact. Normal speech. LABS CBCD WBC 4.7 K/mm3 (4.0-10.0) 09/24/17 10:50 RBC 3.80 M/mm3 (3.60-5.2) 09/24/17 10:50 Hgb 11.2 GM/dL (10.7-15.3) 09/24/17 10:50 Hct 32.5 % (32.4-45.2) 09/24/17 10:50 MCV 85.6 fl (80-96) 09/24/17 10:50 MCHC 34.3 g/dl (32.0-36.0) 09/24/17 10:50 RDW 13.4 % (11.6-15.6) 09/24/17 10:50 Plt Count 207 K/MM3 (134-434) 09/24/17 10:50 MPV 8.6 fl (7.5-11.1) 09/24/17 10:50 CMP Sodium 139 mmol/L (136-145) 09/24/17 10:50 Potassium 4.1 mmol/L (3.5-5.1) 09/24/17 10:50 Chloride 104 mmol/L (98-107) 09/24/17 10:50 Carbon Dioxide 29 mmol/L (21-32) 09/24/17 10:50 Anion Gap 6 (8-16) L 09/24/17 10:50 BUN 9 mg/dL (7-18) 09/24/17 10:50 Creatinine 0.8 mg/dL (0.55-1.02) 09/24/17 10:50 Creat Clearance w eGFR > 60 (>60) 09/24/17 10:50 Calcium 9.0 mg/dL (8.5-10.1) 09/24/17 10:50 Total Bilirubin 0.5 mg/dL (0.2-1.0) 09/22/17 11:19 AST 18 U/L (15-37) 09/22/17 11:19 ALT 22 U/L (12-78) 09/22/17 11:19 Alkaline Phosphatase 64 U/L (45-117) 09/22/17 11:19 Total Protein 6.8 g/dl (6.4-8.2) 09/22/17 11:19 Albumin 3.8 g/dl (3.4-5.0) 09/22/17 11:19 Laboratory Tests 09/22/17 09/22/17 09/23/17 11:19 18:10 01:30 Troponin I < 0.02 < 0.02 < 0.02 09/23/17 14:05 Troponin I < 0.02 Imaging 09/22/17 US carotids: normal study 09/23/17 Echo: LV normal EF 60-65%; RV normal; moderate MR; mild TR; moderate AI HOSPITAL COURSE: Date of Admission:09/22/17 Date of Discharge: 09/25/17 Pre hospital course 67-year-old female with a past medical history of HTN, who presented to the ED s /p syncopal episode at [facility] an hour prior to arrival. The patient was standing up when she suddenly became nauseous, lightheaded, and heard this rushing noise in her ears. Members of the [facility] sat her down and tried giving her water. As they were trying to stand her up the patient lost consciousness for a few seconds. When the patient regained consciousness she knew who she was and where she was, but was confused as to what happened. She reported having a similar episode back in the spring that resolved on its own and she did not seek medical care. Patient denied chest pain, SOB, PORTILLO, orthopnea, lower extremity edema. She ate a full breakfast before going to [facility]. She does not recall ever being told she had an irregular heart beat or atrial fibrillation. ER course was notable for: (1) ECG: afib @ 70bpm (2) BP 100/71 (3) K 3.2 Subsequent hospital course Syncope Atrial fibrillation, newly diagnosed, episodes of RVR --several episodes of HR to 140s on telemetry --troponin neg x 3 --CXR: unremarkable --09/23 Echo: LV normal EF 60-65%; RV normal; moderate MR; mild TR; moderate AI --09/22 US carotids: normal study --last dose of Eliquis given on 09/24 at 9:40pm; Lovenox 80mg given 09/25 at 2: 30pm --09/25 Stress MIBI: exercise-induced ECG changes, TIB 1.2 no perfusion defects --discussed with Dr. Karlo Zuniga at [facility], cardiac interventionalist, will accept patient for transfer Hypertension --normotensive --continue lisinopril 10mg Hypokalemia, resolved --repleted Dispo: transfer to [facility]. Full code. Minutes to complete discharge: 35 Discharge Summary Reason For Visit: ATRIAL FIBRILLATION; SYNCOPE Current Active Problems Atrial fibrillation (Acute) Hypomagnesemia (Acute) Syncope (Acute) Condition: Stable - Instructions Referrals: Bryant Boggs MD [Primary Care Provider] - 2 Weeks Disposition: TRANSFER ACUTE CARE/OTHER HOSP - Home Medications Comprehensive Discharge Medication List: Ambulatory Orders Captopril 0 mg PO DAILY 09/22/17 This patient is new to me today: No Emergency Visit: Yes ED Registration Date: 09/22/17 Care time: The patient presented to the Emergency Department on the above date and was hospitalized for further evaluation of their emergent condition. Critical Care patient: No - Discharge Referral Referred to [facility] Med P.C.: No
[2017-09-25 23:24] VITALS: PULSE 71; TEMP 98.4
[2017-09-26 00:44] VITALS: BP 146/74
== END 2017-09-26 01:15 | disposition short-term general hospital (02) | DRG 310 ==
LOC: JER 11:01 → SUATTDRO 11:01 → UNDOADMOB 13:04 → INTOOBSV 13:04 → JERBED 13:04 → J4W 09-24 01:42 → OBSVTOIN 09-25 14:57
PROVIDERS: ADMIT Internal Medicine; ATTEND Nurse Practitioner Acute Care
DX: I48.0 Paroxysmal atrial fibrillation (principal); I10 Essential (primary) hypertension; E87.6 Hypokalemia; E83.42 Hypomagnesemia
CPT/HCPCS: 36415; 71045-TC-FY; 78452-TC; 80048; 80053; 80061; 81003; 82550; 83721; 83735; 84443; 84484; 85025; 85610; 85730; 87086; 93005; 93010; 93017; 93306-TC; 93880-TC; 99285-25; A9502; G0378; J7030